=== PATIENT | male | born 1935 | race Caucasian/White ===

== ENCOUNTER 2016-12-29 22:16 | Emergency (ER) | payer MEDICARE, OTHER ==
[2015-12-28 14:19] VITALS: BMI 30.7
[~2016-12-29 22:16] MED LIST: ALTACE2.5 MG PO; BAYER CHEWABLE81 MG PO; FOLATE0.4 MG PO; LIPITOR40 MG PO; PLAVIX75 MG PO; PRILOSEC20 MG PO; TOPROL XL50 MG PO; VITAMIN B-121000 MCG; VITAMIN B-121000 MCG PO; VITAMIN D31000 UNIT; VITAMIN D31000 UNIT PO; ZYLOPRIM300 MG; ZYLOPRIM300 MG PO
[2016-12-29 23:02] LABS: APPEARANCE CLEAR (CLEAR); BILIRUBIN NEGATIVE (NEGATIVE); COLOR YELLOW (YELLOW); GLUCOSE NEGATIVE (NEGATIVE); KETONE NEGATIVE (NEGATIVE); NITRITE NEGATIVE (NEGATIVE); PROTEIN NEGATIVE (NEGATIVE); SPECIFIC GRAVITY 1.015 (1.005-1.020); UROBILINOGEN NORMAL (NORMAL)
== END 2016-12-29 23:15 | disposition home or self-care (01) ==
LOC: D.ER 22:16
PROVIDERS: Emergency Medicine
DX: R33.9 Retention of urine, unspecified (principal)

== ENCOUNTER 2017-01-01 16:37 | Emergency (ER) | payer MEDICARE, OTHER ==
[2015-12-28 14:19] VITALS: BMI 30.7
[2017-01-01 18:45] LABS: APPEARANCE HAZY (CLEAR); COLOR YELLOW (YELLOW); NITRITE NEGATIVE (NEGATIVE); PROTEIN TRACE mg/dL (NEGATIVE); SPECIFIC GRAVITY 1.015 (1.005-1.020)
[2017-01-01 18:46] LABS: BILIRUBIN NEGATIVE (NEGATIVE); GLUCOSE NEGATIVE (NEGATIVE); KETONE NEGATIVE (NEGATIVE); UROBILINOGEN NORMAL (NORMAL)
[2017-01-01 18:47] LABS: BACTERIA FEW /hpf (NONE SEEN); RED CELLS - URINE >50 /hpf (0-5); WHITE CELLS - URINE 0-5 /hpf (0-5)
== END 2017-01-01 18:04 | disposition home or self-care (01) ==
LOC: D.ER 16:37
PROVIDERS: Emergency Medicine
DX: R33.9 Retention of urine, unspecified (principal)

== ENCOUNTER 2017-01-02 23:17 | Emergency (ER) | payer MEDICARE, OTHER ==
[2015-12-28 14:19] VITALS: BMI 30.7
[2017-01-03 00:35] LABS: APPEARANCE CLEAR (CLEAR); BILIRUBIN NEGATIVE (NEGATIVE); COLOR YELLOW (YELLOW); GLUCOSE NEGATIVE (NEGATIVE); KETONE NEGATIVE (NEGATIVE); NITRITE NEGATIVE (NEGATIVE); PROTEIN NEGATIVE (NEGATIVE); UROBILINOGEN NORMAL (NORMAL)
[2017-01-03 00:36] LABS: BACTERIA FEW /hpf (NONE SEEN); EPITHELIAL CELLS NSEEN /hpf (0-5); WHITE CELLS - URINE 0-5 /hpf (0-5)
== END 2017-01-03 00:51 | disposition home or self-care (01) ==
LOC: D.ER 23:17
PROVIDERS: Emergency Medicine
DX: R33.9 Retention of urine, unspecified (principal)

== ENCOUNTER 2017-02-23 11:48 | Emergency (ER) | payer MEDICARE, OTHER ==
[2015-12-28 14:19] VITALS: BMI 30.7
[2017-02-23 12:26] LABS: BASOPHILS 0.3 % (0-2); EOSINOPHILS 8.2 % (0-7); HEMATOCRIT 36.3 % (42.0-54.0); HEMOGLOBIN 11.9 g/dL (13.5-17.5); IMMATURE GRANULOCYTES 0.3 % (0-5); MCH 31.6 pg (26.0-34.0); MCHC 32.8 g/dL (31.0-37.0); MCV 96.5 fL (80.0-100.0); MEAN PLATELET VOLUME 9.2 fL (7.4-10.4); MONOCYTES 5.8 % (2-11); NEUTROPHILS 61.4 % (40-80); PLATELET COUNT 179 10x3/uL (130-400); RBC 3.76 10x6/uL (4.20-6.10); RDW 14.7 % (11.5-14.5); WBC 7.1 10x3/uL (4.8-10.8)
[2017-02-23 12:50] LABS: ALBUMIN 3.5 g/dL (3.4-5.0); ANION GAP 14.4 mmol/L (8-16); BILIRUBIN - TOTAL 0.68 mg/dL (0.2-1.3); CALCIUM 9.7 mg/dL (8.5-10.1); CARBON DIOXIDE 28.1 mmol/L (21.0-32.0); MAGNESIUM - SERUM 2.4 mg/dL (1.8-2.4); POTASSIUM - SERUM 4.5 mmol/L (3.5-5.1); PROTEIN - SERUM 8.2 g/dL (6.4-8.2)
[2017-02-23 12:58] LABS: CREATINE KINASE 83 UL (21-232); PRO BNP 122 pg/mL (0-450); TROPONIN-I < 0.017 ng/mL (0.000-0.060)
== END 2017-02-23 14:20 | disposition home or self-care (01) ==
LOC: D.ER 11:48
PROVIDERS: Emergency Medicine
DX: J20.9 Acute bronchitis, unspecified (principal); J45.909 Unspecified asthma, uncomplicated; N17.9 Acute kidney failure, unspecified; E86.0 Dehydration; D64.9 Anemia, unspecified

== ENCOUNTER 2017-08-03 05:51 | Observation (INO) | payer MEDICARE, OTHER ==
[~2017-08-03] VITALS: Ht 177.8 cm; Wt 94.4 kg
--- NOTE | ~2017-08-03 | EC ---
PATIENT:ANIKET RUIZ DATE OF SERVICE: 08/03/17 SEX: M MEDICAL RECORD: [id number] DATE OF : 33 LOCATION:D.M2 D.211 AGE OF PATIENT: 81 ADMISSION DATE: 08/03/17 REFERRING PHYSICIAN: INTERPRETING PHYSICIAN: CHARISMA RAPHAEL MD ECHOCARDIOGRAM REPORT ECHO CHARGES 4 ECHO COMPLETE Date: 08/03 CLINICAL DIAGNOSIS: CHEST PAIN ECHOCARDIOGRAPHIC MEASUREMENTS (adult normal given) AC root (d.<3.7cm) 3.9 cm LV Septum d (<1.2 cm> 1.4 cm Valve Excursion 2.2 cm LV Septum (systole) 1.6 cm Left Atria (s.<4.0cm> 4.0 cm LVPW d(<1.2cm) 1.6 cm RV (d.<2.3cm) 5.0 cm LVPW (sytole) 2.1 cm LV diastole(<5.6CM) 5.4 cm MV E-F(>70mm/sec) cm LV systole 4.4 cm LVOT Diameter 2.1 cm MV exc.(>10mm) 1.5 cm Est.ejection fraction (50-75%) % DOPPLER: LVIT cm/sec A 51.0 cm/sec E 98.0 cm/sec LA cm/sec RVSP 47 mmHg LVOT 81 cm/sec AOP1/2T 680 m/s Asc. Ao 94 cm/sec RVOT 57 cm/sec RA cm/sec PA 99 cm/sec AV Gradient Peak 3.53 mmHg AV Mean 1.77 mmHg AV Area 3.0 cm MV Gradient Peak 3.88 mmHg MV Mean 1.36 mmHg MV Area cm COMMENTS: Orchid Hand: Brandon PINEDA Lamp Inspector: Giovanni Raphael TAPE# PACS Pericardial Effusion N DATE OF SERVICE: 08/03/2017 INDICATIONS: Transthoracic echocardiogram. FINDINGS: 1. Left ventricle has evidence of left ventricular hypertrophy. Inflow characteristics consistent with grade II diastolic dysfunction. 2. The left atrium is mildly dilated. 3. The mitral valve has mild mitral regurgitation. 4. Tricuspid valve has mild tricuspid regurgitation, RVSP of 40-45 mmHg. ECHOCARDIOGRAM REPORT [id number] ANIKET RUIZ 5. The pericardium is normal. 6. The right ventricle is moderately dilated. 7. The right atrium is moderately dilated. 8. The pulmonic valve showed mild pulmonic insufficiency. 9. The aortic valve, although structurally appears to be normal, has [id number] aortic insufficiency. CONCLUSIONS: The patient has evidence of hypertensive heart disease. There are no obvious regional wall motion abnormalities. The patient has preserved LV systolic function, has evidence of grade II diastolic dysfunction. The patient of note was bradycardic throughout the exam. TRANSINT:[id number] Voice Confirmation ID: [id number] DOCUMENT ID: [id number] CHARISMA RAPHAEL MD at 0927 CC: [id number] DICTATION DATE: 08/04/17 1035 GAS METER CHECKER: 08/04/17 1112 DIS IN 08/04/17 [facility] [address] [place] [address]
[2017-08-03] MEDS ORDERED: FLOMAX0.4 MG PO (06:03)
[2017-08-03 06:16] VITALS: BP 162/62
[2017-08-03 06:28] LABS: BASOPHILS 0.3 % (0-2); EOSINOPHILS 7.4 % (0-7); HEMATOCRIT 33.6 % (42.0-54.0); HEMOGLOBIN 11.1 g/dL (13.5-17.5); IMMATURE GRANULOCYTES 0.3 % (0-5); LYMPHOCYTES 32.2 % (15-50); MCH 31.6 pg (26.0-34.0); MCV 95.7 fL (80.0-100.0); MEAN PLATELET VOLUME 9.4 fL (7.4-10.4); MONOCYTES 6.9 % (2-11); NEUTROPHILS 52.9 % (40-80); PLATELET COUNT 149 10x3/uL (130-400); RBC 3.51 10x6/uL (4.20-6.10); RDW 14.1 % (11.5-14.5)
[2017-08-03 06:41] LABS: INR 1.04 (0.85-1.17); PROTIME 13.2 SECONDS (11.6-15.0)
[2017-08-03 06:45] LABS: ALBUMIN 3.1 g/dL (3.4-5.0); ALKALINE PHOSPHATASE 63 U/L (46-116); ALT (SGPT) 18 U/L (10-68); BILIRUBIN - TOTAL 0.48 mg/dL (0.2-1.3); CALC OSMOLALITY 284 mosm/kg (275-300); CALCIUM 9.4 mg/dL (8.5-10.1); CHLORIDE - SERUM 105 mmol/L (98-107); CREATININE - SERUM 2.3 mg/dL (0.6-1.3); GLUCOSE 105 mg/dL (74-106); POTASSIUM - SERUM 4.3 mmol/L (3.5-5.1); PROTEIN - SERUM 7.4 g/dL (6.4-8.2); SODIUM 141 mmol/L (136-145); UREA NITROGEN 25 mg/dL (7-18); eGFR NON AFRICAN AMERICAN 29 mL/min (90-120)
[2017-08-03 06:57] LABS: CKMB 0.9 U/L (0.0-3.6); CREATINE KINASE 96 UL (21-232); PRO BNP 217 pg/mL (0-450); TROPONIN-I < 0.017 ng/mL (0.000-0.060)
[2017-08-03 07:29] VITALS: BP 142/58
[2017-08-03] MEDS ORDERED: PROSCAR5 MG PO (08:54)
[2017-08-03] MEDS ORDERED: PROTONIX40 MG PO (08:57)
[2017-08-03] MEDS ORDERED: ZYLOPRIM100 MG PO (08:58)
[2017-08-03 09:18] VITALS: BP 169/67; BMI 30.4
[2017-08-03 11:25] VITALS: BP 169/65
[2017-08-03 15:15] VITALS: Ht 177.8 cm; Wt 94.4 kg
[2017-08-03 15:36] LABS: % SATURATION 21 % (15-55); IRON 60 ug/dl (35-150); TOTAL IRON BIND CAPACITY 277 ug/dl (260-445); UNSAT IRON BIND CAPACITY 217 ug/dl (150-375)
[2017-08-03 15:39] VITALS: BP 121/60
[2017-08-03 22:41] VITALS: BP 125/61
[2017-08-04 01:53] VITALS: BP 134/68
[2017-08-04 05:03] LABS: BASOPHILS 0.2 % (0-2); EOSINOPHILS 6.5 % (0-7); HEMATOCRIT 33.3 % (42.0-54.0); HEMOGLOBIN 10.8 g/dL (13.5-17.5); IMMATURE GRANULOCYTES 0.3 % (0-5); LYMPHOCYTES 27.6 % (15-50); MCH 30.9 pg (26.0-34.0); MCHC 32.4 g/dL (31.0-37.0); MCV 95.4 fL (80.0-100.0); MEAN PLATELET VOLUME 9.7 fL (7.4-10.4); MONOCYTES 5.1 % (2-11); NEUTROPHILS 60.3 % (40-80); PLATELET COUNT 161 10x3/uL (130-400); RBC 3.49 10x6/uL (4.20-6.10); RDW 13.8 % (11.5-14.5); WBC 6.3 10x3/uL (4.8-10.8)
[2017-08-04 05:23] LABS: ANION GAP 9.3 mmol/L (8-16); CARBON DIOXIDE 29.1 mmol/L (21.0-32.0); POTASSIUM - SERUM 4.4 mmol/L (3.5-5.1)
[2017-08-04 06:25] VITALS: BP 141/58
[2017-08-04 09:01] VITALS: BP 154/70
[2017-08-04] MEDS ORDERED: ALTACE5 MG PO (12:16)
[2017-08-04] MEDS ORDERED: COREG12.5 MG PO (12:16)
[2017-08-04] MEDS ORDERED: ISOSORBIDE DINI10 MG PO (12:16)
[2017-08-06 08:20] LABS: FOLATE (FOLIC ACID) - SERUM 17.3 ng/mL (>3.0)
== END 2017-08-04 13:56 | disposition home or self-care (01) ==
LOC: D.ER 05:51 → OBSVTIME 07:33 → D.M2 07:33 → D.ER 07:50 → D.M2 08-04 13:56
PROVIDERS: Family Medicine; Internal Medicine Nephrology
DX: I10 Essential (primary) hypertension (principal); R00.1 Bradycardia, unspecified; I25.10 Atherosclerotic heart disease of native coronary artery without angina pectoris; Z95.1 Presence of aortocoronary bypass graft; N17.9 Acute kidney failure, unspecified; D64.9 Anemia, unspecified; K21.9 Gastro-esophageal reflux disease without esophagitis

== ENCOUNTER 2018-06-04 19:30 | Inpatient (IN) | payer MEDICARE, OTHER ==
[~2018-06-04] VITALS: Ht 177.8 cm; Wt 96.2 kg
[~2018-06-04 19:30] MED LIST changes: +ALTACE5 MG PO; +COREG12.5 MG PO; +FLOMAX0.4 MG PO; +ISOSORBIDE DINI10 MG PO; +PROSCAR5 MG PO; +PROTONIX40 MG PO; +ZYLOPRIM100 MG PO
[2018-06-04] MEDS ORDERED: METOPROLOL TART50 MG PO (19:52)
[2018-06-04 21:59] LABS: BASOPHILS 0.1 % (0-2); EOSINOPHILS 0.7 % (0-7); HEMATOCRIT 30.9 % (42.0-54.0); HEMOGLOBIN 10.3 g/dL (13.5-17.5); IMMATURE GRANULOCYTES 0.2 % (0-5); LYMPHOCYTES 10.2 % (15-50); MCH 30.7 pg (26.0-34.0); MCHC 33.3 g/dL (31.0-37.0); MCV 92.2 fL (80.0-100.0); MEAN PLATELET VOLUME 9.1 fL (7.4-10.4); MONOCYTES 6.3 % (2-11); NEUTROPHILS 82.5 % (40-80); PLATELET COUNT 147 10x3/uL (130-400); RBC 3.35 10x6/uL (4.20-6.10); RDW 14.7 % (11.5-14.5); WBC 13.7 10x3/uL (4.8-10.8)
--- NOTE | 2018-06-04 22:00 | NUR ---
PT RESTING EYES CLOSED, RR EVEN AND UNLABORED, VSS. FAMILY AT BEDSIDE WILL CONTINUE TO MONITOR.
[2018-06-04 22:07] LABS: APPEARANCE CLEAR (CLEAR); BILIRUBIN NEGATIVE (NEGATIVE); COLOR YELLOW (YELLOW); GLUCOSE NEGATIVE (NEGATIVE); KETONE NEGATIVE (NEGATIVE); NITRITE NEGATIVE (NEGATIVE); PROTEIN NEGATIVE (NEGATIVE); UROBILINOGEN NORMAL (NORMAL)
[2018-06-04 22:09] LABS: APTT 35.5 SECONDS (22.8-39.4); INR 1.21 (0.85-1.17); PROTIME 14.7 SECONDS (11.6-15.0)
[2018-06-04 22:14] LABS: ALBUMIN 3.1 g/dL (3.4-5.0); ALKALINE PHOSPHATASE 61 U/L (46-116); ALT (SGPT) 15 U/L (10-68); BILIRUBIN - TOTAL 0.84 mg/dL (0.2-1.3); CALC OSMOLALITY 281 mosm/kg (275-300); CALCIUM 8.6 mg/dL (8.5-10.1); CARBON DIOXIDE 26.4 mmol/L (21.0-32.0); CHLORIDE - SERUM 102 mmol/L (98-107); GLUCOSE 112 mg/dL (74-106); POTASSIUM - SERUM 4.4 mmol/L (3.5-5.1); PROTEIN - SERUM 7.5 g/dL (6.4-8.2); SODIUM 139 mmol/L (136-145); UREA NITROGEN 21 mg/dL (7-18); eGFR NON AFRICAN AMERICAN 34 mL/min (90-120)
[2018-06-04 22:15] LABS: UDS - AMPHET NEGATIVE QUAL (NEGATIVE); UDS - BARB NEGATIVE QUAL (NEGATIVE); UDS - BENZO NEGATIVE QUAL (NEGATIVE); UDS - COCAINE NEGATIVE QUAL (NEGATIVE); UDS - OPIATE NEGATIVE QUAL (NEGATIVE); UDS - PCP NEGATIVE QUAL (NEGATIVE); UDS - THC NEGATIVE QUAL (NEGATIVE)
[2018-06-04 22:24] LABS: CKMB 0.2 U/L (0.0-3.6); CREATINE KINASE 66 UL (21-232); MAGNESIUM - SERUM 1.9 mg/dL (1.8-2.4); THYROID STIMULATING HORMONE 1.51 uIU/mL (0.36-3.74)
[2018-06-04 22:26] LABS: TROPONIN-I < 0.017 ng/mL (0.000-0.060)
[2018-06-05] VITALS (7 sets, daily range): BP systolic 112–174; BP diastolic 51–75; Ht 177.8 cm; Wt 96.2 kg
--- NOTE | 2018-06-05 01:38 | NUR ---
RECIEVED TO ROOM FROM ER VIA WHEELCHAIR. ALERT ORIENTED. NO COMPLAITNS VOICED. RESP UNLABORED. ORIENTED TO ROOM. FAMILY AT BEDSIDE.
--- NOTE | 2018-06-05 07:25 | NUR ---
PT RESTING IN BED, EYES CLOSED. RESPIRATIONS EVEN AND UNLABORED. AROUSES TO VOICE. PT STILLAGUAMISH. NO C/O PAIN. NO S/S OF ACUTE DISTRESS NOTED. PT WALKS WITH CANE. ALERT AND ORIENTED. IV TO LEFT FOREARM, SL. FRICTION RUB ASCULTATED BILATERAL LUNGS ALL LOBES, MORE PROMINATE IN THE RIGHT LOWER LOBE AND LEFT LOWER LOBE. PT DENIES ANYTHING FURTHER AT THIS TIME. CALL LIGHT IN REACH. WILL CONTINUE TO MONITOR.
[2018-06-05 11:22] LABS: ANION GAP 12.2 mmol/L (8-16); CALCIUM 8.6 mg/dL (8.5-10.1); CARBON DIOXIDE 26.7 mmol/L (21.0-32.0); CREATININE - SERUM 1.8 mg/dL (0.6-1.3); POTASSIUM - SERUM 3.9 mmol/L (3.5-5.1)
[2018-06-05 11:28] LABS: BASOPHILS 0 % (0-2); EOSINOPHILS 1.9 % (0-7); HEMATOCRIT 29.8 % (42.0-54.0); HEMOGLOBIN 9.8 g/dL (13.5-17.5); IMMATURE GRANULOCYTES 0.3 % (0-5); LYMPHOCYTES 14.1 % (15-50); MCH 30.8 pg (26.0-34.0); MCHC 32.9 g/dL (31.0-37.0); MCV 93.7 fL (80.0-100.0); MEAN PLATELET VOLUME 9.9 fL (7.4-10.4); MONOCYTES 5.8 % (2-11); NEUTROPHILS 77.9 % (40-80); PLATELET COUNT 156 10x3/uL (130-400); RBC 3.18 10x6/uL (4.20-6.10); RDW 14.9 % (11.5-14.5)
[2018-06-05 11:45] LABS: WBC 9.6 10x3/uL (4.8-10.8)
--- NOTE | 2018-06-05 18:30 | NUR ---
I have reviewed this patient and I concur with the Shift Assessment completed by the Licensed Practical Nurse today this shift.
--- NOTE | 2018-06-05 18:39 | NUR ---
PT RESTING IN BED, VISITING WITH FAMILY. NO C/O PAIN. NO S/S OF ACUTE DISTRESS NOTED. PT DENIES ANYTHING FURTHER AT THIS TIME. CALL LIGHT IN REACH. WILL CONTINUE TO MONITOR.
--- NOTE | 2018-06-05 22:58 | NUR ---
AWAKE,ALERT.NO DISTRESS NOTED. COMPLAITNS OF NO BEING ABLE TO VOID. BLADDER SCAN SHOWS 680 CC. ROCHA CATH INSERTED PER ORDERS WITH 800 CC CLEAR YELLOW URINE RETURNED. CL IN REACH
[2018-06-06] VITALS: BP 120/70
--- NOTE | 2018-06-06 02:31 | NUR ---
I have reviewed this patient and I concur with the Shift Assessment completed by the Licensed Practical Nurse today this shift.
[2018-06-06 04:00] VITALS: BP 134/64
[2018-06-06 06:34] LABS: BASOPHILS 0.1 % (0-2); EOSINOPHILS 4.1 % (0-7); HEMATOCRIT 28.3 % (42.0-54.0); IMMATURE GRANULOCYTES 0.3 % (0-5); LYMPHOCYTES 22.8 % (15-50); MCH 29.9 pg (26.0-34.0); MCHC 31.8 g/dL (31.0-37.0); MEAN PLATELET VOLUME 9.4 fL (7.4-10.4); MONOCYTES 5.6 % (2-11); NEUTROPHILS 67.1 % (40-80); PLATELET COUNT 143 10x3/uL (130-400); RBC 3.01 10x6/uL (4.20-6.10)
[2018-06-06 06:52] LABS: ALBUMIN 2.5 g/dL (3.4-5.0); ANION GAP 12.1 mmol/L (8-16); BILIRUBIN - TOTAL 0.63 mg/dL (0.2-1.3); CALCIUM 8.4 mg/dL (8.5-10.1); CARBON DIOXIDE 25.7 mmol/L (21.0-32.0); CREATININE - SERUM 1.8 mg/dL (0.6-1.3); POTASSIUM - SERUM 3.8 mmol/L (3.5-5.1); PROTEIN - SERUM 6.6 g/dL (6.4-8.2)
[2018-06-06 11:01] VITALS: BP 104/62
--- NOTE | 2018-06-06 11:52 | NUR ---
PT RESTING IN BED. NO SIGNS OF DISTRESS. IV TO LEFT FORARM PATENT NO REDNESS OR TENDERNESS. HAS ROCHA NO KINKS. DENIES ANY FUTHER NEED AT THIS TIME. CALL LIGHT IN REACH. BED LOW POSITION. NO FAMILY AT BEDSIDE AT THIS TIME.
--- NOTE | 2018-06-06 13:32 | NUR ---
I have reviewed this patient and I concur with the Shift Assessment completed by the Licensed Practical Nurse today this shift.
[2018-06-06 14:08] VITALS: BP 137/98
--- NOTE | 2018-06-06 14:13 | NUR ---
I have reviewed this patient and I concur with the Shift Assessment completed by the Licensed Practical Nurse today this shift.
[2018-06-06 17:26] VITALS: BP 142/84
[2018-06-06 20:00] VITALS: BP 147/65
[2018-06-07] VITALS: BP 141/63
[2018-06-07 04:00] VITALS: BP 136/89
[2018-06-07 05:49] LABS: BASOPHILS 0.1 % (0-2); EOSINOPHILS 6.1 % (0-7); HEMATOCRIT 30.3 % (42.0-54.0); HEMOGLOBIN 9.9 g/dL (13.5-17.5); IMMATURE GRANULOCYTES 0.2 % (0-5); LYMPHOCYTES 19.3 % (15-50); MCH 30.5 pg (26.0-34.0); MCHC 32.7 g/dL (31.0-37.0); MCV 93.2 fL (80.0-100.0); MEAN PLATELET VOLUME 9.5 fL (7.4-10.4); MONOCYTES 5.5 % (2-11); NEUTROPHILS 68.8 % (40-80); PLATELET COUNT 161 10x3/uL (130-400); RBC 3.25 10x6/uL (4.20-6.10); RDW 14.8 % (11.5-14.5); WBC 8.6 10x3/uL (4.8-10.8)
[2018-06-07 06:20] LABS: ANION GAP 11.8 mmol/L (8-16); CALCIUM 8.4 mg/dL (8.5-10.1); CARBON DIOXIDE 26.4 mmol/L (21.0-32.0); CREATININE - SERUM 1.6 mg/dL (0.6-1.3); POTASSIUM - SERUM 4.2 mmol/L (3.5-5.1)
[2018-06-07 08:45] VITALS: BP 149/65
[2018-06-07] MEDS ORDERED: ZITHROMAX500 MG PO (10:55)
[2018-06-07] MEDS ORDERED: ALBUTEROL SULF8.5 GM INH (10:57)
[2018-06-07 12:58] VITALS: BP 137/65; BP 145/63
--- NOTE | 2018-06-07 14:37 | NUR ---
DISCHARGE INSTRUCTIONS GIVEN. SEEMS TO UNDERSTAND INSTRUCTIONS.IV OUT TIP INTACT. TELEMETRY OFF. ROCHA DC AND VOIDED ON HIS OWN. DENIES ANY NEED. LEFT WITH HOSPITAL STAFF TO GO HOME.
--- NOTE | 2018-06-07 16:41 | MORECARE ---
CASE MANAGEMENT DISCHARGE SUMMARY PATIENT: ANIKET RUIZ GERALDINE UNIT: [id number] ADM DATE: 06/05/18 AGE: 82 : 34 SEX: M ROOM/BED: D.2238 AUTHOR: JAGJIT NGUYEN PHYSICIAN: REFERRING PHYSICIAN: FRANK MILLER MD DATE OF SERVICE: 06/07/18 Discharge Plan Patient Name: ANIKET RUIZ [facility] [facility] 1935 Planned Disposition: Home Anticipated Discharge Date: 06/07/18 Discharge Date: 06/07/2018 Expected LOS: 2 Initial Reviewer: [email or web address] Initial Review Date: 06/05/2018 Generated: 06/07/18 5:41 pm Patient Name: ANIKET RUIZ Page 48085 at 1641 All edits/amendments must be made on the electronic document DICTATION DATE: 06/07/18 1640 POWER PLANT OPERATORS SUPERVISOR: BRYNN 06/07/18 1640 RPT#: [id number] DC DATE:06/07/18 STATUS: DIS IN [facility] [address] [place] [address] END OF REPORT
--- NOTE | 2018-06-07 16:49 | MORECARE ---
CASE MANAGEMENT DISCHARGE SUMMARY PATIENT: ANIKET RUIZ UNIT: [id number] ADM DATE: 06/05/18 AGE: 82 : 34 SEX: M ROOM/BED: D.2238 AUTHOR: PATRICK,DOC PHYSICIAN: REFERRING PHYSICIAN: FRANK MILLER MD DATE OF SERVICE: 06/07/18 Discharge Plan Patient Name: ANIKET URIZ Facility: [facility]:[place] : 1935 Planned Disposition: Home Anticipated Discharge Date: 06/07/18 Discharge Date: 06/07/2018 Expected LOS: 2 Initial Reviewer: [email or web address] Initial Review Date: 06/05/2018 Generated: 06/07/18 5:48 pm Comments DCP- Discharge Planning Updated by [email or web address]: Debbie Delvalle on 06/07/18 3:[address] CM MET WITH THE PATIENT AT THE BEDSIDE. ONE OF HIS GRANDDAUGHTERS WAS PRESENT. HE GAVE PERMISSION TO SPEAK WITH ANY FAMILY MEMBER. HE IS PLANNING DISCHARGE TO HOME. STATES HE DOES NOT UTILIZE ANY COMMUNITY OR HOME HEALTH SERVICES. HE HAS A SPOUSE AND 5 SONS. FAMILY WILL ASSIST IF NEEDED. DOES NOT FEEL HE WILL NEED ANY H/H SERVICES. PCP- [facility] [address] DME- [place] ONLY HAS A RAMP TO ENTER HIS HOME. LIVES IN A TRAILER. HAS ADDITIONAL ROOM BULIT ONTO THE ORIGINAL UNIT. HIS ROCHA WILL STILL IN. CM SPOKE WITH HIS PRIMARY NURSE. HE HAD A D/C ROCHA ORDER AND NEEDED TO VOID BEFORE BEING DISCHARGED. PRIMARY NURSE WENT TO THE ROOM TO D/C HIS ROCHA. PATIENT WAS ALSO GETTING DRESSED. PATIENT DISCHARGED BEFORE CM COULD GET BACK FOR DISCHARGE IMM. DCPIA - Discharge Planning Initial Assessment Updated by [email or web address]: Debbie Delvalle on 06/07/18 4:41 pm * Is the patient Alert and Oriented? Yes * How many steps to enter\exit or inside your home? RAMP * PCP DR WILLS * Pharmacy [facility] [address] * Preadmission Environment Home with Family * ADLs Independent * Equipment Cane * Other Equipment DENIES ANY ADDITIONAL DME. [place] ONLY * List name and contact numbers for known caregivers / representatives who currently or will assist patient after discharge: GETACHEW RUIZ- ONE OF FIVE SONS - [phone] * Verbal permission to speak to the caregivers and representatives has been obtained from the patient. Yes * Community resources currently utilized None * Please name any agencies selected above. DENIES ANY COMMUNITY OR H/H SERVICES * Additional services required to return to the preadmission environment? No * Can the patient safely return to the preadmission environment? Yes * Has this patient been hospitalized within the prior 30 days at any hospital? No Last DP export: 06/07/18 3:41 p Patient Name: ANIKET RUIZ Page 47763 at 1649 All edits/amendments must be made on the electronic document DICTATION DATE: 06/07/181647 CONCRETE MIXING PLANT LABORER: BRYNN 06/07/181647 RPT#: [id number] DC DATE:06/07/18 STATUS: DIS IN [facility] [address] [place] [address] END OF REPORT
--- NOTE | 2018-06-09 11:41 | MORECARE ---
CASE MANAGEMENT DISCHARGE SUMMARY PATIENT: ANIKET RUIZ UNIT: [id number] ADM DATE: 06/05/18 AGE: 82 : 34 SEX: M ROOM/BED: D.2238 AUTHOR: PATRICK,DOC PHYSICIAN: REFERRING PHYSICIAN: FRANK MILLER MD DATE OF SERVICE: 06/09/18 Discharge Plan Patient Name: ANIKET RUIZ Facility: [facility]:[place] : 1935 Planned Disposition: Home Anticipated Discharge Date: 06/07/18 Discharge Date: 06/07/2018 Expected LOS: 2 Initial Reviewer: [email or web address] Initial Review Date: 06/05/2018 Generated: 06/09/18 12:41 pm Comments DCP- Discharge Planning Updated by [email or web address]: Debbie Delvalle on 06/07/18 3:[address] CM MET WITH THE PATIENT AT THE BEDSIDE. ONE OF HIS GRANDDAUGHTERS WAS PRESENT. HE GAVE PERMISSION TO SPEAK WITH ANY FAMILY MEMBER. HE IS PLANNING DISCHARGE TO HOME. STATES HE DOES NOT UTILIZE ANY COMMUNITY OR HOME HEALTH SERVICES. HE HAS A SPOUSE AND 5 SONS. FAMILY WILL ASSIST IF NEEDED. DOES NOT FEEL HE WILL NEED ANY H/H SERVICES. PCP- [facility] [address] DME- [place] ONLY HAS A RAMP TO ENTER HIS HOME. LIVES IN A TRAILER. HAS ADDITIONAL ROOM BULIT ONTO THE ORIGINAL UNIT. HIS ROCHA WILL STILL IN. CM SPOKE WITH HIS PRIMARY NURSE. HE HAD A D/C ROCHA ORDER AND NEEDED TO VOID BEFORE BEING DISCHARGED. PRIMARY NURSE WENT TO THE ROOM TO D/C HIS ROCHA. PATIENT WAS ALSO GETTING DRESSED. PATIENT DISCHARGED BEFORE CM COULD GET BACK FOR DISCHARGE IMM. DCPIA - Discharge Planning Initial Assessment Updated by [email or web address]: Debbie Delvalle on 06/07/18 4:41 pm * Is the patient Alert and Oriented? Yes * How many steps to enter\exit or inside your home? RAMP * PCP DR WILLS * Pharmacy [facility] [address] * Preadmission Environment Home with Family * ADLs Independent * Equipment Cane * Other Equipment DENIES ANY ADDITIONAL DME. [place] ONLY * List name and contact numbers for known caregivers / representatives who currently or will assist patient after discharge: GETACHEW RUIZ- ONE OF FIVE SONS - [phone] * Verbal permission to speak to the caregivers and representatives has been obtained from the patient. Yes * Community resources currently utilized None * Please name any agencies selected above. DENIES ANY COMMUNITY OR H/H SERVICES * Additional services required to return to the preadmission environment? No * Can the patient safely return to the preadmission environment? Yes * Has this patient been hospitalized within the prior 30 days at any hospital? No Last DP export: 06/07/18 3:49 p Patient Name: ANIKET RUIZ Page 35892 at 1141 All edits/amendments must be made on the electronic document DICTATION DATE: 06/09/18 1141 GEAR SHAPER SET UP OPERATOR: BRYNN 06/09/18 1141 RPT#: [id number] DC DATE:06/07/18 STATUS: DIS IN [facility] [address] [place] [address] END OF REPORT
--- NOTE | 2018-06-11 10:39 | EC ---
PATIENT:ANIKET RUIZ DATE OF SERVICE: 06/05/18 SEX: M MEDICAL RECORD: [id number] DATE OF : 34 LOCATION:D.MS [place] AGE OF PATIENT: 82 ADMISSION DATE: 06/05/18 REFERRING PHYSICIAN: INTERPRETING PHYSICIAN: CALISTA LOU MD ECHOCARDIOGRAM REPORT ECHO CHARGES 4 ECHO COMPLETE Date: 06/05/18 CLINICAL DIAGNOSIS: ECHOCARDIOGRAPHIC MEASUREMENTS (adult normal given) AC root (d.<3.7cm) 3.5 cm LV Septum d (<1.2 cm> 1.6 cm Valve Excursion 1.7 cm LV Septum (systole) 2.0 cm Left Atria (s.<4.0cm> 4.8 cm LVPW d(<1.2cm) 1.5 cm RV (d.<2.3cm) 3.5 cm LVPW (sytole) 2.0 cm LV diastole(<5.6CM) 6.0 cm MV E-F(>70mm/sec) cm LV systole 3.9 cm LVOT Diameter 2.1 cm MV exc.(>10mm) cm Est.ejection fraction (50-75%) % DOPPLER: LVIT cm/sec A 73.0 cm/sec E 87.0 cm/sec LA cm/sec RVSP 49.0 mmHg LVOT 129 cm/sec AOP1/2T m/s Asc. Ao 147 cm/sec RVOT 62.0 cm/sec RA cm/sec PA 111 cm/sec AV Gradient Peak 8.7 mmHg AV Mean 5.2 mmHg AV Area 3.1 cm MV Gradient Peak 4.6 mmHg MV Mean 2.2 mmHg MV Area cm COMMENTS: Retail Shift Leader: Alina INGRAMOE Kids Activities Coach: 1 Dr. Lou TAPE# PACS Pericardial Effusion N DATE OF SERVICE: 06/06/2018 PROCEDURE: Echocardiogram. FINDINGS: 1. Left ventricular chamber size is mildly dilated. Left ventricular systolic function is preserved. Overall ejection fraction estimated at 60%. 2. Left atrium is enlarged at 4.8 cm. Right atrium and right ventricular chamber sizes are within normal limits. 3. Valvular structures have normal structure and motion. ECHOCARDIOGRAM REPORT [id number] ANIKET RUIZ 4. Doppler interrogation reveals trace aortic insufficiency, moderate mitral regurgitation, no other valvular insufficiency or stenosis. Pulmonary systolic pressure is estimated at 50 mmHg. 5. No evidence of pericardial effusion or left ventricular thrombus. TRANSINT:[id number] Voice Confirmation ID: [id number] DOCUMENT ID: [id number] CALISTA LOU MD at 1039 CC: [id number] DICTATION DATE: 06/06/18 1219 CASHIER GREETER: 06/06/18 1243 DIS IN 06/07/18 [place] [id number] [place] [id number]
== END 2018-06-07 14:38 | disposition home or self-care (01) | DRG 193 ==
LOC: D.ER 19:30 → D.MS 06-05 00:43
PROVIDERS: Family Medicine; ADMIT Internal Medicine Nephrology; ATTEND Internal Medicine Nephrology
DX: J18.9 Pneumonia, unspecified organism (principal); G92 Toxic encephalopathy; G93.40 Encephalopathy, unspecified; N17.9 Acute kidney failure, unspecified; I13.10 Hypertensive heart and chronic kidney disease without heart failure, with stage 1 through stage 4 chronic kidney disease, or unspecified chronic kidney disease; N18.9 Chronic kidney disease, unspecified; I25.10 Atherosclerotic heart disease of native coronary artery without angina pectoris; K21.9 Gastro-esophageal reflux disease without esophagitis

== ENCOUNTER 2018-08-06 18:51 | Emergency (ER) | payer MEDICARE, OTHER ==
[~2018-08-06] VITALS: Ht 177.8 cm; Wt 79.4 kg
[~2018-08-06 18:51] MED LIST changes: +ALBUTEROL SULF8.5 GM INH; +METOPROLOL TART50 MG PO; +ZITHROMAX500 MG PO
[2018-08-06 18:53] VITALS: Ht 177.8 cm; Wt 79.4 kg
[2018-08-06] MEDS ORDERED: EPIPEN 2-P0.3 MG/0.3 IM (19:31)
[2018-08-06 19:55] VITALS: BP 136/58
== END 2018-08-06 19:55 | disposition home or self-care (01) ==
LOC: D.ER 18:51
DX: T63.461A Toxic effect of venom of wasps, accidental (unintentional), initial encounter (principal); W57.XXXA Bitten or stung by nonvenomous insect and other nonvenomous arthropods, initial encounter

== ENCOUNTER 2018-11-21 03:19 | Inpatient (IN) | payer MEDICARE, OTHER ==
[~2018-11-21] VITALS: Ht 177.8 cm; Wt 86.2 kg
[~2018-11-21 03:19] MED LIST changes: +EPIPEN 2-P0.3 MG/0.3 IM
[2018-11-21 03:37] LABS: BASOPHILS 0.3 % (0-2); EOSINOPHILS 7.7 % (0-7); HEMATOCRIT 31.6 % (42.0-54.0); HEMOGLOBIN 9.9 g/dL (13.5-17.5); IMMATURE GRANULOCYTES 0.3 % (0-5); MCH 29.5 pg (26.0-34.0); MCHC 31.3 g/dL (31.0-37.0); MEAN PLATELET VOLUME 9.4 fL (7.4-10.4); MONOCYTES 6.8 % (2-11); NEUTROPHILS 59.9 % (40-80); PLATELET COUNT 171 10x3/uL (130-400); RBC 3.36 10x6/uL (4.20-6.10); WBC 7.1 10x3/uL (4.8-10.8)
[2018-11-21 03:52] LABS: APTT 33.4 SECONDS (22.8-39.4); INR 1.05 (0.85-1.17); PROTIME 13.2 SECONDS (11.6-15.0)
--- NOTE | 2018-11-21 03:55 | NUR ---
PT TO CT.
[2018-11-21 03:56] LABS: ALBUMIN 3.2 g/dL (3.4-5.0); ALKALINE PHOSPHATASE 59 U/L (46-116); ALT (SGPT) 12 U/L (10-68); BILIRUBIN - TOTAL 0.67 mg/dL (0.2-1.3); CALC OSMOLALITY 289 mosm/kg (275-300); CARBON DIOXIDE 30.8 mmol/L (21.0-32.0); CHLORIDE - SERUM 106 mmol/L (98-107); CREATININE - SERUM 2.5 mg/dL (0.6-1.3); GLUCOSE 105 mg/dL (74-106); POTASSIUM - SERUM 3.7 mmol/L (3.5-5.1); PROTEIN - SERUM 7.5 g/dL (6.4-8.2); SODIUM 144 mmol/L (136-145); UREA NITROGEN 22 mg/dL (7-18); eGFR NON AFRICAN AMERICAN 26 mL/min (90-120)
[2018-11-21 04:11] LABS: CKMB 0.8 U/L (0.0-3.6); CREATINE KINASE 89 UL (21-232); MAGNESIUM - SERUM 1.8 mg/dL (1.8-2.4); THYROID STIMULATING HORMONE 2.47 uIU/mL (0.36-3.74); TROPONIN-I < 0.017 ng/mL (0.000-0.060)
[2018-11-21 04:56] VITALS: BP 140/55
[2018-11-21 05:39] VITALS: BP 151/67
--- NOTE | 2018-11-21 05:57 | NUR ---
URINE SENT TO LAB.
[2018-11-21 06:17] LABS: APPEARANCE CLEAR (CLEAR); BILIRUBIN NEGATIVE (NEGATIVE); COLOR YELLOW (YELLOW); GLUCOSE NEGATIVE (NEGATIVE); KETONE NEGATIVE (NEGATIVE); NITRITE NEGATIVE (NEGATIVE); PROTEIN NEGATIVE (NEGATIVE); UROBILINOGEN NORMAL (NORMAL)
[2018-11-21 06:19] LABS: UDS - AMPHET NEGATIVE QUAL (NEGATIVE); UDS - BARB NEGATIVE QUAL (NEGATIVE); UDS - BENZO NEGATIVE QUAL (NEGATIVE); UDS - COCAINE NEGATIVE QUAL (NEGATIVE); UDS - OPIATE NEGATIVE QUAL (NEGATIVE); UDS - PCP NEGATIVE QUAL (NEGATIVE); UDS - THC NEGATIVE QUAL (NEGATIVE)
--- NOTE | 2018-11-21 06:42 | NUR ---
RECEIVED PT FROM ER VIA STRETCHER. ACCOMPANIED BY FAMILY MEMBERS. YELLOW GOWN, SOCKS, YELLOW BRACELET AND MANGO ALARM ON. NS @ 125 ML/HR INFUSING IN LT AC WITHOUT DIFF. INCONT OF URINE. ADULT BRIEF ON. NO DISTRESS. PT IS CONFUSED AND HAS DIFF FOLLOWING COMMANDS. EASILY EXCITED. UNCOORDINATED BODY MOVEMENTS NOTED. SR ELEVATED X2. CL IN REACH
--- NOTE | 2018-11-21 06:55 | NUR ---
RESTING IN BED, EYES OPEN. NO C/O PAIN. NO S/S OF ACUTE DISTRESS NOTED. FAMILY AT BEDSIDE. WRANGELL. UP WITH ASSIST. GENERALIZED WEAKNESS. INCONTINENT OF B&B. IV TO LEFT AC, NS INFUSING @ 125ML/HR. SITE PATENT WITHOUT REDNESS OR SWELLING. PT DENIES ANY NEEDS AT THIS TIME. CALL LIGHT IN REACH. WILL CONTINUE TO MONITOR.
[2018-11-21 08:13] LABS: % SATURATION 13 % (15-55); IRON 48 ug/dl (35-150); TOTAL IRON BIND CAPACITY 349 ug/dl (260-445); UNSAT IRON BIND CAPACITY 301 ug/dl (150-375)
[2018-11-21 08:39] LABS: FERRITIN 17 ng/mL (3-244); LDH 177 U/L (85-227)
[2018-11-21 11:46] VITALS: BP 144/54; BMI 27.3
[2018-11-21 12:21] VITALS: BP 104/42
--- NOTE | 2018-11-21 14:23 | NUR ---
BLADDER SCANNED PT PER PHYSICIAN ORDERS. BLADDER SCAN SHOWED 478ML IN BLADDER. PLACED ROCHA, 16 FR WITH 10 ML INSERTED INTO BULB.
--- NOTE | 2018-11-21 15:01 | MORECARE ---
CASE MANAGEMENT DISCHARGE SUMMARY PATIENT: ANIKET RUIZ GERALDINE UNIT: [id number] ADM DATE: 11/21/18 AGE: 83 : 34 SEX: M ROOM/BED: D.2235 AUTHOR: JAGJIT NGUYEN PHYSICIAN: REFERRING PHYSICIAN: FRANK MILLER MD DATE OF SERVICE: 11/21/18 Discharge Plan Patient Name: ANIKET RUIZ [facility] [facility] 1935 Planned Disposition: Home Anticipated Discharge Date: 11/22/18 Discharge Date: Expected LOS: 1 Initial Reviewer: [email or web address] Initial Review Date: 11/21/2018 Generated: 11/21/18 4:01 pm Patient Name: ANIKET RUIZ Page 09222 at 1501 All edits/amendments must be made on the electronic document DICTATION DATE: 11/21/18 150 PREMIUM CARD CANCELLATION CLERK: BRYNN 11/21/18 1501 RPT#: [id number] DC DATE: STATUS: ADM IN [facility] [address] [place] [address] END OF REPORT
--- NOTE | 2018-11-21 15:08 | MORECARE ---
CASE MANAGEMENT DISCHARGE SUMMARY PATIENT: ANIKET RUIZ UNIT: [id number] ADM DATE: 11/21/18 AGE: 83 : 34 SEX: M ROOM/BED: D.3235 AUTHOR: PATRICKDOC PHYSICIAN: REFERRING PHYSICIAN: FRANK MILLER MD DATE OF SERVICE: 11/21/18 Discharge Plan Patient Name: ANIKET RUIZ Facility: [facility]:[place] : 1935 Planned Disposition: Home Anticipated Discharge Date: 11/22/18 Discharge Date: Expected LOS: 1 Initial Reviewer: [email or web address] Initial Review Date: 11/21/2018 Generated: 11/21/18 4:08 pm Comments DCP- Discharge Planning Updated by [email or web address]: Mayra Veloz on 11/21/18 2:[address] Patient Name: ANIKET RUIZ Admission Status: ER Accout number: [id number] Admission Date: 11-21-2018 : 1935 Admission Diagnosis: Attending: FRANK MILLER Current LOS: 1 Anticipated DC Date: 11-22-2018 Planned Disposition: Home Primary Insurance: MEDICARE A & B Discharge Planning Comments: CM met with patient to complete initial dc planning assessment. CM educated patient on the CM role and verbal consent given by patient to complete assessment. Patient lives at home with his spouse. At discharge patient plans to return and feels this is a safe discharge. CM discussed availability of home health, rehab services, and medical equipment. Patient denied known discharge needs at this time. He states he is independent with all ADL's and AIDL's. I informed him that I could get a walker for him, he refuses. His son, Franco, is in the room and states they have 2 walkers at home that he can use. States "we will get him one if we can't find them." I encouraged home health for strengthening, he declines home health. PT eval has been ordered. Will need to assess for home health again after PT evaluation if needed. CM will continue to follow and will assist as needed with dc plans/needs. Medical Associate: Mayra Veloz DCPIA - Discharge Planning Initial Assessment Updated by [email or web address]: Mayra Veloz on 11/21/18 3:01 pm * Is the patient Alert and Oriented? Yes * How many steps to enter\\exit or inside your home? Ramp/0 * PCP Dr. Hardik Monteiro * Pharmacy [facility] [address] * Preadmission Environment Home with Family * ADLs Partial Dependent * Partial ADLs (Assistance needed) Ambulation * Equipment Cane * List name and contact numbers for known caregivers / representatives who currently or will assist patient after discharge: Franco Ruiz - son [phone] Akila uRiz - - [phone] Henrik Ruiz - son [phone] * Verbal permission to speak to the caregivers and representatives has been obtained from the patient. Yes * Community resources currently utilized None * Additional services required to return to the preadmission environment? No * Can the patient safely return to the preadmission environment? Yes * Has this patient been hospitalized within the prior 30 days at any hospital? No Last DP export: 11/21/18 2:01 Patient Name: ANIKET RUIZ Page 72171 at 1508 All edits/amendments must be made on the electronic document DICTATION DATE: 11/21/181507 RANCH MANAGER: BRYNN 11/21/181507 RPT#: [id number] DC DATE: STATUS: ADM IN [facility] [address] [place] [address] END OF REPORT
[2018-11-21 17:39] VITALS: BP 160/81
--- NOTE | 2018-11-21 18:45 | NUR ---
RESTING IN BED, EYES OPEN. NO C/O PAIN. NO S/S OF ACUTE DISTRESS NOTED. DENIES ANY NEEDS AT THIS TIME. CALL LIGHT IN REACH. WILL CONTINUE TO MONITOR.
[2018-11-21 20:00] VITALS: BP 146/63
[2018-11-22] VITALS: BP 151/60
--- NOTE | 2018-11-22 00:31 | NUR ---
PT RESTING IN BED. EYES CLOSED. NO SIGNS OF DISTRESS. BREATHING EVEN AND UNLABORED. IV SITE LT AC DRESSING CLEAN DRY AND INTACT. NO SIGNS OF INFECTION. LUNG SOUNDS CLEAR. BOWEL SOUNDS ACTIVE. SKIN CLEAN DRY AND INTACT. GENERLIZED WEAKNESS. ROCHA IN PLACE CLEAN DRY AND INTACT. NO LOWER LEG SWELLING PRESENT. WILL CONTINUE PLAN OF CARE. CALL LIGHT IN REACH. BED LOWERED AND LOCKED. BED RAILS UPX2. MANGO ALARM ON.
--- NOTE | 2018-11-22 02:10 | NUR ---
I have reviewed this patient and I concur with the Shift Assessment completed by the Licensed Practical Nurse today this shift.
[2018-11-22 04:00] VITALS: BP 156/62
[2018-11-22 06:12] LABS: BASOPHILS 0.2 % (0-2); EOSINOPHILS 9.6 % (0-7); HEMATOCRIT 27.9 % (42.0-54.0); HEMOGLOBIN 8.6 g/dL (13.5-17.5); IMMATURE GRANULOCYTES 0.2 % (0-5); LYMPHOCYTES 25.4 % (15-50); MCH 29.3 pg (26.0-34.0); MCHC 30.8 g/dL (31.0-37.0); MCV 94.9 fL (80.0-100.0); MEAN PLATELET VOLUME 9.1 fL (7.4-10.4); MONOCYTES 7.6 % (2-11); PLATELET COUNT 150 10x3/uL (130-400); RBC 2.94 10x6/uL (4.20-6.10); RDW 15.8 % (11.5-14.5); WBC 5.4 10x3/uL (4.8-10.8)
[2018-11-22 06:27] LABS: CALCIUM 8.1 mg/dL (8.5-10.1); CARBON DIOXIDE 29.1 mmol/L (21.0-32.0); CREATININE - SERUM 1.9 mg/dL (0.6-1.3); POTASSIUM - SERUM 4.1 mmol/L (3.5-5.1)
--- NOTE | 2018-11-22 07:00 | NUR ---
PATIENT RECIEVED FROM PREVIOUS SHIFT RESTING WITH NO NEEDS VOICED. DENIES PAIN OR SHORTNESS OF BREATH. ORIENTED TO PERSON AND TIME. REORIENTED TO PLACE. FAMILY AT BEDSIDE. CL IN REACH
[2018-11-22 08:41] VITALS: BP 120/64
[2018-11-22 09:49] VITALS: Ht 177.8 cm; Wt 86.2 kg
--- NOTE | 2018-11-22 10:00 | NUR ---
PATIENT ORIENTED X3 AT THIS TIME. AMBULATING IN HALLWAYS WITH PT
[2018-11-22] MEDS ORDERED: FLOMAX0.4 MG PO (10:06)
[2018-11-22] MEDS ORDERED: PLAVIX75 MG PO (10:09)
--- NOTE | 2018-11-22 11:32 | NUR ---
IV REMOVED WITH NO REDNESS OR EDEMA AT SITE. LEG BAG PLACED TO ROCHA AND PATIENT AND FAMILY EDUCATED ON DRAINAGE AND ROCHA CARE. DISCHARGE INSTRUCTIONS GIVEN WITH UNDERSTANDING VOICED OF TEACHING. PATIENT TAKEN BY WHEELCHAIR TO PRIVATE CAR
--- NOTE | 2018-11-25 15:30 | MORECARE ---
CASE MANAGEMENT DISCHARGE SUMMARY PATIENT: ANIKET RUIZ UNIT: [id number] ADM DATE: 11/21/18 AGE: 83 : 34 SEX: M ROOM/BED: D.2235 AUTHOR: JAGJIT NGUYEN PHYSICIAN: REFERRING PHYSICIAN: FRANK MILLER MD DATE OF SERVICE: 11/25/18 Discharge Plan Patient Name: ANIKET RUIZ Facility: [facility]:[place] : 1935 Planned Disposition: Home Anticipated Discharge Date: 11/22/18 Discharge Date: 11/22/2018 Expected LOS: 1 Initial Reviewer: [email or web address] Initial Review Date: 11/21/2018 Generated: 11/25/18 4:29 pm Comments DCP- Discharge Planning Updated by [email or web address]: Mayra Veloz on 11/21/18 2:[address] Patient Name: ANIKET RUZI Admission Status: ER Accout number: [id number] Admission Date: 11-21-2018 : 1935 Admission Diagnosis: Attending: FRANK MILLER Current LOS: 1 Anticipated DC Date: 11-22-2018 Planned Disposition: Home Primary Insurance: MEDICARE A & B Discharge Planning Comments: CM met with patient to complete initial dc planning assessment. CM educated patient on the CM role and verbal consent given by patient to complete assessment. Patient lives at home with his spouse. At discharge patient plans to return and feels this is a safe discharge. CM discussed availability of home health, rehab services, and medical equipment. Patient denied known discharge needs at this time. He states he is independent with all ADL's and AIDL's. I informed him that I could get a walker for him, he refuses. His son, Franco, is in the room and states they have 2 walkers at home that he can use. States "we will get him one if we can't find them." I encouraged home health for strengthening, he declines home health. PT eval has been ordered. Will need to assess for home health again after PT evaluation if needed. CM will continue to follow and will assist as needed with dc plans/needs. Business Support Assistant: Mayra Veloz DCPIA - Discharge Planning Initial Assessment Updated by [email or web address]: Mayra Veloz on 11/21/18 3:01 pm * Is the patient Alert and Oriented? Yes * How many steps to enter\\exit or inside your home? Ramp/0 * PCP Dr. Hardik Monteiro * Pharmacy [facility] [address] * Preadmission Environment Home with Family * ADLs Partial Dependent * Partial ADLs (Assistance needed) Ambulation * Equipment Cane * List name and contact numbers for known caregivers / representatives who currently or will assist patient after discharge: Franco Ruiz - son [phone] Akila Ruiz - - [phone] Henrik Ruiz - son [phone] * Verbal permission to speak to the caregivers and representatives has been obtained from the patient. Yes * Community resources currently utilized None * Additional services required to return to the preadmission environment? No * Can the patient safely return to the preadmission environment? Yes * Has this patient been hospitalized within the prior 30 days at any hospital? No Last DP export: 11/21/18 2:09 Patient Name: ANIKET RUIZ Page 94162 at 1530 All edits/amendments must be made on the electronic document DICTATION DATE: 11/25/181528 DOOR FITTER: BRYNN 11/25/181528 RPT#: [id number] DC DATE:11/22/18 STATUS: DIS IN [facility] [address] [place] [address] END OF REPORT
== END 2018-11-22 11:34 | disposition home or self-care (01) | DRG 684 ==
LOC: D.ER 03:19 → D.MS 04:38
PROVIDERS: Family Medicine; ADMIT Internal Medicine Nephrology; ATTEND Internal Medicine Nephrology
DX: N17.9 Acute kidney failure, unspecified (principal); I12.9 Hypertensive chronic kidney disease with stage 1 through stage 4 chronic kidney disease, or unspecified chronic kidney disease; G31.9 Degenerative disease of nervous system, unspecified; R55 Syncope and collapse; R26.9 Unspecified abnormalities of gait and mobility; N18.9 Chronic kidney disease, unspecified; D50.9 Iron deficiency anemia, unspecified; I25.10 Atherosclerotic heart disease of native coronary artery without angina pectoris; K21.9 Gastro-esophageal reflux disease without esophagitis; R33.9 Retention of urine, unspecified

== ENCOUNTER 2018-11-24 11:06 | Emergency (ER) | payer MEDICARE, OTHER ==
[~2018-11-24] VITALS: Ht 177.8 cm; Wt 93.2 kg
[2018-11-24 11:09] VITALS: BP 139/76; Ht 177.8 cm; Wt 93.2 kg
== END 2018-11-24 12:07 | disposition home or self-care (01) ==
LOC: D.ER 11:06
DX: Z46.6 Encounter for fitting and adjustment of urinary device (principal); I10 Essential (primary) hypertension

== ENCOUNTER → 2018-11-26 18:39 | Outpatient (CLI) | payer MEDICARE, OTHER ==
[2018-11-24 11:09] VITALS: BMI 29.4
== END | disposition home or self-care (01) ==
LOC: D.LABREF 18:39
PROVIDERS: ATTEND Urology
DX: R31.9 Hematuria, unspecified (principal); D72.819 Decreased white blood cell count, unspecified

== ENCOUNTER → 2018-12-12 15:03 | Outpatient (CLI) | payer MEDICARE, OTHER ==
[2018-11-24 11:09] VITALS: BMI 29.4
== END | disposition home or self-care (01) ==
LOC: D.LABREF 15:03
PROVIDERS: ATTEND Urology
DX: R82.90 Unspecified abnormal findings in urine (principal)

== ENCOUNTER 2020-04-20 17:13 | Emergency (ER) | payer MEDICARE, OTHER ==
[~2020-04-20] VITALS: Ht 177.8 cm; Wt 81.8 kg
[2020-04-20 17:31] VITALS: BP 179/52; Ht 177.8 cm; Wt 81.8 kg
[2020-04-20 17:58] LABS: BILIRUBIN NEGATIVE (NEGATIVE); KETONE NEGATIVE (NEGATIVE); NITRITE NEGATIVE (NEGATIVE); UROBILINOGEN NORMAL mg/dL (< 2)
== END 2020-04-20 19:45 | disposition home or self-care (01) ==
LOC: D.ER 17:13
PROVIDERS: Family Medicine
DX: R33.9 Retention of urine, unspecified (principal)

== ENCOUNTER 2020-04-21 09:20 | Emergency (ER) | payer MEDICARE, OTHER ==
[~2020-04-21] VITALS: Ht 177.8 cm; Wt 81.8 kg
[2020-04-21 09:29] VITALS: BP 118/52; Ht 177.8 cm; Wt 81.8 kg
== END 2020-04-21 10:44 | disposition home or self-care (01) ==
LOC: D.ER 09:20
DX: T83.018A Breakdown (mechanical) of other urinary catheter, initial encounter (principal)

== ENCOUNTER 2020-04-21 21:54 | Emergency (ER) | payer MEDICARE, OTHER ==
[~2020-04-21] VITALS: Ht 177.8 cm; Wt 81.8 kg
[2020-04-21 22:00] VITALS: BP 121/73; Ht 177.8 cm; Wt 81.8 kg
== END 2020-04-21 22:24 | disposition home or self-care (01) ==
LOC: D.ER 21:54
DX: R33.9 Retention of urine, unspecified (principal); T85.638A Leakage of other specified internal prosthetic devices, implants and grafts, initial encounter

== ENCOUNTER 2020-04-22 11:45 | Emergency (ER) | payer MEDICARE, OTHER ==
[~2020-04-22] VITALS: Ht 177.8 cm; Wt 84.1 kg
[2020-04-22 11:56] VITALS: BP 159/51; Ht 177.8 cm; Wt 84.1 kg
== END 2020-04-22 14:34 | disposition home or self-care (01) ==
LOC: D.ER 11:45
DX: R33.9 Retention of urine, unspecified (principal); T83.098A Other mechanical complication of other urinary catheter, initial encounter